=== PATIENT | female | born 1960 | race Caucasian/White ===

== ENCOUNTER 2018-03-29 14:30 | Emergency (ER) | payer SELFPAY ==
[~2018-03-29] VITALS: Ht 157.5 cm; Wt 84.6 kg
[~2018-03-29 14:30] MED LIST: CIPR500T4 PO; DOCU-144 PO; HYDR-4011 PO; NAPR-985 PO
[2018-03-29 14:38] VITALS: Ht 157.5 cm; Wt 84.6 kg
--- NOTE | 2018-03-29 15:10 | ERD ---
ER Documentation Chief Complaint Chief Complaint LT SHOULDER PAIN AND RT ARM SWELLING AND PAIN S/P FALL YESTERDAY HPI 57-year-old female, right-handed, presents the emergency department, complaining of right upper extremity pain after a ground-level fall that occurred yesterday when the patient slipped on wet floor. The pain is dull, constant, worse at the elbow, associated with decreased range of motion. No medications taken today including her blood pressure medications. The patient denies head trauma, no loss of consciousness. ROS All systems reviewed and are negative except as per history of present illness. Medications Home Meds Active Scripts Ibuprofen* (Motrin*) 600 Mg Tab, 600 MG PO Q8, #30 TAB Prov:CHRISTINA FALK MD 03/29/18 Acetaminophen* (Tylenol*) 325 Mg Tablet, 2 TAB PO Q8 PRN for PAIN AND OR ELEVATED TEMP, #20 TAB Prov:CHRISTINA FALK MD 03/29/18 Docusate Sodium* (Colace*) 100 Mg Capsule, 100 MG PO TID, #30 CAP Prov:Xi Noel PA-C 01/06/16 Hydrocodone/Acetaminophen (Deridder 5-325 Tablet) 1 Each Tablet, 1 EACH PO Q6 PRN for PAIN, #10 TAB Prov:Xi Noel PA-C 01/06/16 Naproxen* (Naprosyn*) 500 Mg Tablet, 500 MG PO BID PRN for PAIN AND/OR INFLAMMATION, #30 TAB Prov:Xi Noel PA-C 01/06/16 Ciprofloxacin Hcl* (Ciprofloxacin Hcl*) 500 Mg Tablet, 500 MG PO BID for 7 Days, TAB Prov:JUAN ESPINOSA PA-C 06/19/15 Allergies Allergies: Coded Allergies: Penicillins (Verified Allergy, Unknown, rash, 06/19/15) PMhx/Soc Hx Alcohol Use: No Hx Substance Use: No Hx Tobacco Use: No FmHx Family History: No diabetes, No coronary disease Physical Exam Vitals Vital Signs Date Temp Pulse Resp B/P (MAP) Pulse Ox O2 O2 Flow FiO2 Time Delivery Rate 03/29/18 98.3 69 20 194/95 98 Room Air 16:36 (128) 03/29/18 99.3 85 17 202/97 97 14:38 (132) Physical Exam Const: No acute distress Head: Atraumatic Eyes: Normal Conjunctiva ENT: Normal External Ears, Nose and Mouth. Neck: Full range of motion. No meningismus. Resp: Clear to auscultation bilaterally Cardio: Regular rate and rhythm, no murmurs Abd: Soft, non tender, non distended. Normal bowel sounds Skin: No petechiae or rashes Back: No midline or flank tenderness Ext: Right upper extremity: Significant tenderness over the lateral epicondylar area of the elbow. Decreased range of motion, distal neurovascular exam intact Neur: Awake and alert Psych: Normal Mood and Affect Results 24 hrs Current Medications Medications Dose Sig/Sallie Start Time Status Last (Trade) Ordered Route PRN Stop Time Admin Dose Reason Admin Ibuprofen 600 mg ONCE ONCE 03/29/18 DC 03/29/18 (Motrin) PO 15:30 15:27 03/29/18 15:31 650 mg ONCE ONCE 03/29/18 DC 03/29/18 Acetaminophen PO 15:30 15:27 (Tylenol 03/29/18 15:31 Tab) Nicardipine 30 mg ONCE ONCE 03/29/18 DC 03/29/18 HCl PO 16:30 16:14 (Cardene) 03/29/18 16:31 DIAGNOSTIC IMAGING REPORT Patient: LARISSA NICHOLS : 1960 Age: 57 Sex: F MR #: [id number] DOS: 03/29/18 1506 Ordering MD: CHRISTINA FALK MD Location: [facility] Room/Bed: PROCEDURE: XR Right Elbow. CLINICAL INDICATION: Pain after fall TECHNIQUE: AP, lateral and oblique views of the right elbow performed. COMPARISON: None. FINDINGS: Minimally-displaced, intra-articular radial head/neck fracture with associated moderate sized joint effusion. No dislocation or arthropathy of the joint spaces. Mild posterior soft tissue swelling. IMPRESSION: Acute minimally-displaced intra-articular radial head fracture with associated joint effusion. RPTAT:AAJJ Physician Linsey Date Time Electronically viewed and signed by Physician Linsey on 03/29/2018 16:03 RF/ CC: CHRISTINA FALK MD [id number] DIAGNOSTIC IMAGING REPORT Patient: LARISSA NICHOLS : 1960 Age: 57 Sex: F MR #: [id number] DOS: 03/29/18 1506 Ordering MD: CHRISTINA FALK MD Location: [facility] Room/Bed: PROCEDURE: Right wrist x-ray CLINICAL INDICATION: s/p fall TECHNIQUE: AP, lateral and oblique views of the wrist were obtained. COMPARISON: None FINDINGS: No acute fracture or dislocation. No significant arthropathy or erosions. Mild soft tissue swelling without foreign body or soft tissue gas. IMPRESSION: Mild soft tissue swelling without evidence of acute fracture. RPTAT:AAJJ Physician Linsey Date Time Electronically viewed and signed by Fide Galvan Physician on 03/29/2018 16:04 RF/ CC: CHRISTINA FALK MD [id number] Procedures/MDM Patient found to have uncontrolled hypertension, she did not take her medications today. Differential diagnosis considered include uncontrolled hypertension, hypertensive crisis, hypertensive urgency, hypertensive emergency. Low suspicion for acute end organ damage. Nicardipine p.o. was given in the emergency department. In regards of her right upper extremity injury, differential diagnosis considered include but not limited are: sprain/strain, ligament injury, fracture, dislocation, low suspicion for acute infectious process. Soft compartments, neurovascular exam grossly intact. Physical examination and clinical presentation consistent with right radial head fracture. During the ED course the patient received treatment with right sugar tong splint presenting overall improvement of the symptoms. Splint evaluation: Type: Sugar tong Location: Right upper extremity Position: good alignment in anatomical position Neurovascular intact Results and clinical impression discussed with patient who agrees with management. The patient is stable to be treated outpatient and will be discharged home with recommendations for Ortho evaluation BRENNAN, meanwhile, ice, rest and partial immobilization. NSAIDs 3 times daily for 5 days and close monitoring. The patient was instructed to follow up with the primary care provider in the next 48h. If symptoms persist, worsen or new symptoms develop, then patient should return to the ED immediately. Instructions explained and given to patient with acknowledgment and demonstrated understanding. Disclaimer: Inadvertent spelling and grammatical errors are likely due to EHR/dictation software use and do not reflect on the overall quality of patient care. Also, please note that the electronic time recorded on this note does not necessarily reflect the actual time of the patient encounter. Departure Diagnosis: Primary Impression: Radial head fracture, closed Laterality: right Condition: Stable Additional Instructions: Muchas lizbeth por [facility] para [place] servicio. Esperamos que en [place] visita a la keke de emergencia [place] problema medico haya sido solucionado y que se sienta mucho mejor. Para estar seguros que [place] mejoria sigue en proceso, le pedimos el favor de hacer sonja emily de seguimiento medico con [place] doctor primario en los proximos 2-4 soriano. Lleve con usted estos documentos y las medicinas recetadas. Si carol sintomas empeoran, NO SE ESPERE, por favor regrese a keke de emergencia INMEDIATAMENTE. En julieta que usted no tenga un mdico de atencin primaria: Llame al mdico o clnica comunitaria de referencia que aparece abajo micha las horas de consultorio para hacer sonja emily para que le vean. CLINICAS: [facility] [id number] [facility] [phone] [facility] [phone] [place] [id number] [phone] [place] [id number] [phone] [facility] [phone] MD Mar 29, 2018 15:10
[2018-03-29] MEDS ORDERED: IBUPROFEN 600 MG TAB PO ONE (15:30)
[2018-03-29] MEDS ORDERED: ACETAMINOPHEN 325 MG TAB PO ONE (15:30)
[2018-03-29] MEDS ORDERED: ACET325T33 PO (16:28)
[2018-03-29] MEDS ORDERED: IBUP-1542 PO (16:28)
[2018-03-29] MEDS ORDERED: NICARDipine HCL 30 MG CAPSULE PO ONE (16:30)
[2018-03-29 16:36] VITALS: BP 194/95; PULSE 69; RESP 20
== END 2018-03-29 17:13 | disposition home or self-care (01) ==
LOC: FTE 14:30
DX: S52.121A Displaced fracture of head of right radius, initial encounter for closed fracture (principal); W18.39XA Other fall on same level, initial encounter; Y92.9 Unspecified place or not applicable